=== PATIENT | male | born 1995 | race Caucasian/White ===

== ENCOUNTER 2023-03-01 10:36 | Inpatient (IN) ==
--- NOTE | 2023-03-01 10:54 | Emergency Department Note ---
Impression & Plan Depression with suicidal ideation ED Provider Note NAME: CARMELO MCELROY AGE: 27 SEX: M : 1995 ARRIVES VIA: Walk-In INFORMANT: Patient, ED PROVIDER(S): Anjel Driscoll MD CHIEF COMPLAINT: Suicidal ideation with plan MEDICAL DECISION MAKING: Patient presents with SI with plan. Blood work was obtained along with urinaly sis urine drug screen as well as salicylate Tylenol alcohol levels. Patient was deemed medically cleared seen and evaluated by psych porter sample case referrals were made and the patient was admitted to 3 S. Discussion w/ other healthcare providers: None Prior /Outside records reviewed: None Differential diagnosis: Mood disorder, infection, hypoglycemia, electrolyte abnormalities, dehydration, medication side effect among others were considered. Diagnostics, as interpreted by me: ECG: None Medical decision rules: Suicide risk severity score Imaging studies: None HPI: Patient presents due to concern for suicidal ideation and plan. The patient has struggled with this chronically and did have a recent inpatient stay at the [facility] but did not want to continue treatment as there was concern that all he was being offered was medication which she did not want to do and wanted to speak with somebody at that time. The patient did have a stay from Monday to Monday. Patient states that he is in the [employer] currently working and in school. States that given his worsening suicidal ideation depression the patient does not been doing as well in school and is planning to take a medical leave of absence. Patient has had plan to either overdose on meds, cut himself or jump off of a high building. Patient denies any HI or AVH. Patient states his sleep has been lacking and the patient's appetite has been "nonexistent." Patient does feel safe at home. PAST MEDICAL HISTORY: Depression PAST SURGICAL HISTORY: No pertinent past surgical history SOCIAL HISTORY: Occasionally uses alcohol uses nicotine gum. Denies drug use. Currently in the [employer] and in school. HOME MEDICATIONS: See Below ALLERGIES: See Below VITALS: See Below PHYSICAL EXAMINATION: GENERAL: NAD, non-toxic. EYE EXAM: Normal conjunctiva. PERRL, no anisocoria and EOM's grossly intact w/o pain. OROPHARYNX: Moist mucus membranes, grossly normal dentition. NECK: Supple, no nuchal rigidity, no adenopathy, non-tender. No signs of meningismus. FROM of the neck with good chin to chest and neck extension. No stridor. LUNGS: Clear to auscultation. Normal chest wall mechanics. HEART: NSR, no MRG. ABDOMEN: Abdomen soft, non-tender, no masses, no rebound or guarding. BACK: No CVA TTP. SKIN: No rashes and no bruising. UPPER EXTREMITIES: Upper extremities are grossly normal. LOWER EXTREMITIES: Grossly normal, no edema. NEURO EXAM: A&O x3, cranial nerves II-XII grossly intact, normal speech, moves all 4 extremities. Psych: Positive SI with plan, negative HI or AVH. Past Med/Surg History Social History Smoking Status: Never smoker Feels Safe at Home: Yes Gender Identity: Male Allergies Allergies Allergy/AdvReac Type Severity Reaction Status Date / Time No Known Allergies Allergy Unverified 03/01/23 10:50 Home Meds Home Medications Medication Instructions Recorded Confirmed No Known Home Medications 03/01/23 03/01/23 Results & Data (ED) Vital Signs Vital Signs - 24 hr 03/01/23 10:38 03/01/23 12:49 Temperature 36.8 C Temperature Source Temporal Artery Scan Pulse Rate 68 Pulse Rate [Left Finger] 65 Respiratory Rate 20 20 Respiratory Effort / Characteristics Non-Labored Spontaneous Respiratory Depth Normal Respiratory Pattern Regular Blood Pressure 146/98 H Blood Pressure [Left Arm] 121/74 Blood Pressure Mean 114 Blood Pressure Mean [Left Arm] 89 Pulse Oximetry 100 100 Oxygen Delivery Method Room Air Room Air Sepsis Recent Fever Within 48 Hours No Sepsis New/Unexplained Change in Mental Status No Sepsis Action Taken by Nursing No Action Required Home Medications Current Medication List: was personally reviewed by me Laboratory Data Attestation: I reviewed the patient's lab results. 03/01/23 11:12 03/01/23 11:12 Lab Results 03/01/23 03/01/23 03/01/23 Range/Units 11:12 11:12 11:12 WBC 3.16 L (4.8-10.8) K/ul RBC 4.96 (4.70-6.10) M/uL Hgb 15.2 (14.0-18.0) g/dl Hct 44.8 (42.0-52.0) % MCV 90.3 (80.0-100.0) fL MCH 30.6 (25.0-34.0) pg MCHC 33.9 (32.0-36.0) g/dL RDW Std Deviation 39.1 (36.4-46.3) fL RDW Coeff of Nati 11.8 (11.5-14.5) % Plt Count 252 (130-400) K/uL MPV 10.9 (9.4-12.4) fL Immature Gran % (Auto) 0.3 % Neut % (Auto) 35.2 % Lymph % (Auto) 52.2 % Luna % (Auto) 10.1 % Eos % (Auto) 1.3 % Baso % (Auto) 0.9 % Neut # (Auto) 1.11 L (1.40-6.50) K/uL Lymph # (Auto) 1.65 (1.20-3.40) K/uL Luna # (Auto) 0.32 (0.11-0.59) K/uL Eos # (Auto) 0.04 (0.00-0.50) K/uL Baso # (Auto) 0.03 (0.00-0.20) K/uL Immature Gran # (Auto) 0.01 (0.01-0.20) K/uL Sodium 138 (136-145) mmol/L Potassium 4.1 (3.5-5.1) mmol/L Chloride 107 (98-107) mmol/L Carbon Dioxide 25 (21-32) mmol/L Anion Gap 6 (3-11) BUN 16 (6-23) mg/dl Creatinine 1.08 (0.6-1.4) mg/dl Est Cr Clr Drug Dosing 103.6 ml/min Est GFR ( Amer) 109.2 ml/min Est GFR (Non-Af Amer) 94.2 ml/min BUN/Creatinine Ratio 14.8 (10-20) Glucose 93 (70-99(Fasting)) mg/dl Calcium 9.7 (8.6-10.3) mg/dl Total Bilirubin 0.5 (0.2-1.0) mg/dl AST 16 (13-39) U/L ALT 17 (7-52) U/L Alkaline Phosphatase 53 (34-104) U/L Total Protein 7.7 (6.0-8.3) gm/dl Albumin 4.8 (3.4-5.0) gm/dl Globulin 2.9 (2.5-4.0) gm/dl Albumin/Globulin Ratio 1.7 (0.9-2) TSH 2.874 (0.300-4.500) uIu/ml Urine Color Urine Appearance (Clear) Urine pH (4.5-7.5) Ur Specific [place] (1.000-1.030) Urine Protein (Negative) Urine Glucose (UA) (Negative) Urine Ketones (Negative) Urine Blood (Negative) Urine Nitrite (Negative) Urine Bilirubin (Negative) Urine Urobilinogen (Negative) Ur Leukocyte Esterase (Negative) Urine WBC (Auto) (0-5) /hpf Urine RBC (Auto) (0-4) /hpf U Hyaline Cast (Auto) (0-5) /lpf U Epithel Cells (Auto) (0-5) /lpf Urine Bacteria (Auto) (Negative) Salicylates < 3.0 L (3.0-30) mg/dl Urine Opiates Screen (Neg) Ur Methadone, Qual (Neg) Acetaminophen < 3 L (10-30) ug/ml Urine Barbiturates (Neg) Ur Phencyclidine (PCP) (Neg) U Amphetamin/Meth Scrn (Neg) MDMA (Ecstasy) Screen (Neg) U Benzodiazepines Scrn (Neg) Ur Cocaine Metabolite (Neg) U Marijuana (THC) Screen (Neg) Ethyl Alcohol mg/dL (<10.0) mg/dl SARS-CoV-2, RNA, NAAT (NEGATIVE) 03/01/23 03/01/23 03/01/23 Range/Units 11:12 11:57 11:57 WBC (4.8-10.8) K/ul RBC (4.70-6.10) M/uL Hgb (14.0-18.0) g/dl Hct (42.0-52.0) % MCV (80.0-100.0) fL MCH (25.0-34.0) pg MCHC (32.0-36.0) g/dL RDW Std Deviation (36.4-46.3) fL RDW Coeff of Nati (11.5-14.5) % Plt Count (130-400) K/uL MPV (9.4-12.4) fL Immature Gran % (Auto) % Neut % (Auto) % Lymph % (Auto) % Luna % (Auto) % Eos % (Auto) % Baso % (Auto) % Neut # (Auto) (1.40-6.50) K/uL Lymph # (Auto) (1.20-3.40) K/uL Luna # (Auto) (0.11-0.59) K/uL Eos # (Auto) (0.00-0.50) K/uL Baso # (Auto) (0.00-0.20) K/uL Immature Gran # (Auto) (0.01-0.20) K/uL Sodium (136-145) mmol/L Potassium (3.5-5.1) mmol/L Chloride (98-107) mmol/L Carbon Dioxide (21-32) mmol/L Anion Gap (3-11) BUN (6-23) mg/dl Creatinine (0.6-1.4) mg/dl Est Cr Clr Drug Dosing ml/min Est GFR ( Amer) ml/min Est GFR (Non-Af Amer) ml/min BUN/Creatinine Ratio (10-20) Glucose (70-99(Fasting)) mg/dl Calcium (8.6-10.3) mg/dl Total Bilirubin (0.2-1.0) mg/dl AST (13-39) U/L ALT (7-52) U/L Alkaline Phosphatase (34-104) U/L Total Protein (6.0-8.3) gm/dl Albumin (3.4-5.0) gm/dl Globulin (2.5-4.0) gm/dl Albumin/Globulin Ratio (0.9-2) TSH (0.300-4.500) uIu/ml Urine Color Yellow Urine Appearance Turbid A (Clear) Urine pH 8.0 H (4.5-7.5) Ur Specific [place] 1.020 (1.000-1.030) Urine Protein Negative (Negative) Urine Glucose (UA) Negative (Negative) Urine Ketones Negative (Negative) Urine Blood Negative (Negative) Urine Nitrite Negative (Negative) Urine Bilirubin Negative (Negative) Urine Urobilinogen Negative (Negative) Ur Leukocyte Esterase Negative (Negative) Urine WBC (Auto) 0 (0-5) /hpf Urine RBC (Auto) 0-4 (0-4) /hpf U Hyaline Cast (Auto) 0 (0-5) /lpf U Epithel Cells (Auto) 0-5 (0-5) /lpf Urine Bacteria (Auto) Negative (Negative) Salicylates (3.0-30) mg/dl Urine Opiates Screen Neg (Neg) Ur Methadone, Qual Neg (Neg) Acetaminophen (10-30) ug/ml Urine Barbiturates Neg (Neg) Ur Phencyclidine (PCP) Neg (Neg) U Amphetamin/Meth Scrn Neg (Neg) MDMA (Ecstasy) Screen Neg (Neg) U Benzodiazepines Scrn Neg (Neg) Ur Cocaine Metabolite Neg (Neg) U Marijuana (THC) Screen Neg (Neg) Ethyl Alcohol mg/dL < 10.0 (<10.0) mg/dl SARS-CoV-2, RNA, NAAT (NEGATIVE) 03/01/23 Range/Units 12:40 WBC (4.8-10.8) K/ul RBC (4.70-6.10) M/uL Hgb (14.0-18.0) g/dl Hct (42.0-52.0) % MCV (80.0-100.0) fL MCH (25.0-34.0) pg MCHC (32.0-36.0) g/dL RDW Std Deviation (36.4-46.3) fL RDW Coeff of Nati (11.5-14.5) % Plt Count (130-400) K/uL MPV (9.4-12.4) fL Immature Gran % (Auto) % Neut % (Auto) % Lymph % (Auto) % Luna % (Auto) % Eos % (Auto) % Baso % (Auto) % Neut # (Auto) (1.40-6.50) K/uL Lymph # (Auto) (1.20-3.40) K/uL Luna # (Auto) (0.11-0.59) K/uL Eos # (Auto) (0.00-0.50) K/uL Baso # (Auto) (0.00-0.20) K/uL Immature Gran # (Auto) (0.01-0.20) K/uL Sodium (136-145) mmol/L Potassium (3.5-5.1) mmol/L Chloride (98-107) mmol/L Carbon Dioxide (21-32) mmol/L Anion Gap (3-11) BUN (6-23) mg/dl Creatinine (0.6-1.4) mg/dl Est Cr Clr Drug Dosing ml/min Est GFR ( Amer) ml/min Est GFR (Non-Af Amer) ml/min BUN/Creatinine Ratio (10-20) Glucose (70-99(Fasting)) mg/dl Calcium (8.6-10.3) mg/dl Total Bilirubin (0.2-1.0) mg/dl AST (13-39) U/L ALT (7-52) U/L Alkaline Phosphatase (34-104) U/L Total Protein (6.0-8.3) gm/dl Albumin (3.4-5.0) gm/dl Globulin (2.5-4.0) gm/dl Albumin/Globulin Ratio (0.9-2) TSH (0.300-4.500) uIu/ml Urine Color Urine Appearance (Clear) Urine pH (4.5-7.5) Ur Specific [place] (1.000-1.030) Urine Protein (Negative) Urine Glucose (UA) (Negative) Urine Ketones (Negative) Urine Blood (Negative) Urine Nitrite (Negative) Urine Bilirubin (Negative) Urine Urobilinogen (Negative) Ur Leukocyte Esterase (Negative) Urine WBC (Auto) (0-5) /hpf Urine RBC (Auto) (0-4) /hpf U Hyaline Cast (Auto) (0-5) /lpf U Epithel Cells (Auto) (0-5) /lpf Urine Bacteria (Auto) (Negative) Salicylates (3.0-30) mg/dl Urine Opiates Screen (Neg) Ur Methadone, Qual (Neg) Acetaminophen (10-30) ug/ml Urine Barbiturates (Neg) Ur Phencyclidine (PCP) (Neg) U Amphetamin/Meth Scrn (Neg) MDMA (Ecstasy) Screen (Neg) U Benzodiazepines Scrn (Neg) Ur Cocaine Metabolite (Neg) U Marijuana (THC) Screen (Neg) Ethyl Alcohol mg/dL (<10.0) mg/dl SARS-CoV-2, RNA, NAAT NEGATIVE (NEGATIVE) Discharge Plan Visit Data Chief Complaint: Mental Health Evaluation Stated Complaint: SUICIDAL THOUGHTS ED Provider: Anjel Driscoll Discharge Problem: Depression with suicidal ideation Patient Disposition: Admitted As Inpatient Forms Stand Alone Forms: [facility], Suicide Prevention Resources Prescriptions Prescriptions: No Action No Known Home Medications Referrals Referrals: PCP,NO [Physician] -
[2023-03-01 11:42] LABS: Hematocrit (blood only) 44.8 % (42.0-52.0); Hemoglobin 15.2 g/dl (14.0-18.0); Mean Corpuscular Hemoglobin 30.6 pg (25.0-34.0); Mean Corpuscular Hgb Conc 33.9 g/dL (32.0-36.0); Mean Corpuscular Volume 90.3 fL (80.0-100.0); Mean Platelet Volume 10.9 fL (9.4-12.4); Platelet Count 252 K/uL (130-400); RDW Coefficient of Variation 11.8 % (11.5-14.5); RDW Standard Deviation 39.1 fL (36.4-46.3); Red Blood Count 4.96 M/uL (4.70-6.10); White Blood Count 3.16 K/ul (4.8-10.8)
[2023-03-01 11:58] LABS: Albumin Level 4.8 gm/dl (3.4-5.0); Bilirubin,Total 0.5 mg/dl (0.2-1.0); Calcium 9.7 mg/dl (8.6-10.3); Potassium 4.1 mmol/L (3.5-5.1)
[2023-03-01 12:04] LABS: Albumin Globulin Ratio 1.7 (0.9-2); BUN Creatinine Ratio 14.8 (10-20); Creatinine Clr Calc Pharmacy 103.6 ml/min; Est GFR (African American) 109.2 ml/min; Est GFR (Non-African American) 94.2 ml/min; Globulin 2.9 gm/dl (2.5-4.0); Total Protein 7.7 gm/dl (6.0-8.3)
[2023-03-01 12:05] LABS: Acetaminophen < 3 ug/ml (10-30); Salicylate < 3.0 mg/dl (3.0-30)
[2023-03-01 12:07] LABS: Basophils # (auto) 0.03 K/uL (0.00-0.20); Basophils % (auto) 0.9 %; Eosinophils # (auto) 0.04 K/uL (0.00-0.50); Eosinophils % (auto) 1.3 %; Immature Granulocytes # (auto) 0.01 K/uL (0.01-0.20); Immature Granulocytes % (auto) 0.3 %; Lymphocytes # (auto) 1.65 K/uL (1.20-3.40); Lymphocytes % (auto) 52.2 %; Monocytes # (auto) 0.32 K/uL (0.11-0.59); Monocytes % (auto) 10.1 %; Neutrophils # (auto) 1.11 K/uL (1.40-6.50); Neutrophils % (auto) 35.2 %
[2023-03-01 12:17] LABS: Thyroid Stimulating Hormone 2.874 uIu/ml (0.300-4.500)
[2023-03-01 12:17] LABS: Appearance Urine Turbid (Clear); Bacteria Urine Automated Negative (Negative); Bilirubin Urine Negative (Negative); Blood Urine Negative (Negative); Cast Urine Automated 0 /lpf (0-5); Color Urine Yellow; Epithelial Cell Urine Auto 0-5 /lpf (0-5); Glucose Urine UA Negative (Negative); Ketones Urine Negative (Negative); Leukocyte Esterase Urine Negative (Negative); Nitrite Urine Negative (Negative); Protein Urine Negative (Negative); RBC Urine Automated 0-4 /hpf (0-4); Urobilinogen Urine Negative (Negative); WBC Urine Automated 0 /hpf (0-5)
[2023-03-01 12:50] LABS: Amphetamines+Metham, Urine Neg (Neg); Barbiturates, Urine Neg (Neg); Benzodiazepine, Urine Neg (Neg); Cocaine, Urine Neg (Neg); MDMA (Ecstacy), Urine Neg (Neg); Methadone, Urine Neg (Neg); Opiate, Urine Neg (Neg); Phencyclidine, Urine Neg (Neg)
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
[2023-03-02] MEDS ORDERED: DICLOFENAC SOD 1% GEL 100 GM TUBE EXT SCH (11:45)
[2023-03-02] MEDS ORDERED: hydrOXYzine HCl 25 MG TAB PO PRN ×2 (13:10)
[2023-03-02] MEDS ORDERED: ALUMINUM/MAGNESIUM SUSP 30 ML UDC PO PRN (13:10)
[2023-03-02] MEDS ORDERED: MAGNESIUM HYDROXIDE SUSP 30 ML UDC PO PRN (13:10)
[2023-03-02] MEDS ORDERED: ACETAMINOPHEN 325 MG TAB PO PRN (13:10)
[2023-03-02] MEDS ORDERED: SODIUM CHLORIDE 0.65% NA SOLN 45 ML (OCEAN) PRN (13:10)
[2023-03-02] MEDS ORDERED: BISMUTH SUBSALICYLATE LIQD 236 ML PO PRN (13:10)
[2023-03-02] MEDS ORDERED: DICLOFENAC SOD 1% GEL 100 GM TUBE EXT PRN (13:11)
[2023-03-02] MEDS: NICOTINE POLACRILEX 2 MG GUM MT PRN ×2 (13:18→21:27)
[2023-03-02] MEDS: buPROPion XL 150 MG TABCR PO SCH (13:18)
[2023-03-03] MEDS: NICOTINE POLACRILEX 2 MG GUM MT PRN ×3 (09:26→19:08)
[2023-03-03] MEDS: buPROPion XL 150 MG TABCR PO SCH (09:28)
--- NOTE | 2023-03-03 09:38 | Psychiatric Progress Note ---
Date of Service March 03, 2023 Impression / Recommendations Impression Rehan is a 27 yo with a history of chronic SI, service who was admitted for worsened depression with SI with multiple plans. Diagnostically seems most consistent with major depressive disorder and possible PTSD component. He is deemed in need of psychiatric hospitalization for diagnostic clarification, safety and stabilization, medication management and development of further coping skills. 03/03/2023: Ongoing depression with SI. Did not tolerate Wellbutrin, had paraxodical reaction so this was discontinued. Discussed medication treatment options and he would like to start sertraline and consented to this. Reviewed side effects including but not limited to: GI, RENAE, vivid dreams, sexual side effects. Overall, I spent a total of 25 minutes with this case including review of chart records, direct evaluation of the patient at bedside, counseling the patient, discussion during interdisciplinary treatment rounds, risk assessment, and documentation in the electronic health record. (1) Depression with suicidal ideation: (2) MDD (major depressive disorder), recurrent episode, severe: (3) Trauma and stressor-related disorder: Plan 03/03/2023: * Discontinue Wellbutrin * Start sertraline 25mg daily 03/02/2023: The patient was admitted to the [facility] ([facility] inpatient mental health unit) on q15 min checks (behavioral with suicide precautions) for safety. The patient will participate in group, recreational, and milieu therapies and will be offered additional individual and family sessions as clinically appropriate. -CAMS assessment -possible trial of prazosin 1mg HS tonight for night terrors -Consider SSRI vs Wellbutrin trial, he is going to discuss past medication trials his mom and siblings have benefited from Inventory Assets Strengths: supportive relationships, willing to get treatment Needs: safety and stabilization, medication adjustment, additional coping skills, increased outpatient services Suicide Risk Level Suicide Risk Level: High-Moderate (q15 min suicide checks) (severe depression with SI with plan prior to admission, ongoing depression with SI but feels safe in the hospital, able to safety contract and agrees to let nursing/staff know should they develop plan, intent or feel unable to remain safe. 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 Chief Complaint "Yeah I definitely felt weird after the Wellbutrin yesterday". Review of Systems Sleep Information Total Hours of Sleep: 7 Meal Information Percent Meal Consumed - Breakfast: 100 Percent Meal Consumed - Lunch: 100 Percent Meal Consumed - Dinner: 100 Subjective Subjective Patient was seen & assessed and interval progress reviewed with treatment team nursing and social work. Experienced brain fog/numbness after initial dose of Wellbutrin as well as a headache, fatigue and increased appetite. Given paradoxical reaction morning dose was discontinued. Reviewed other options and he consented to sertraline trial which his mother previously responded well to. Still having SI but finding groups and unit support helpful. Physical Exam Psychiatric Orientation: alert and oriented x 3 Apperance: appropriately dressed and appropriately groomed Eye Contact: good eye contact Motor Behavior: no abnormal motor movements Speech: normal rate/rhythm/volume of speech Affect: + mood not congruent with affect (smiles ) Mood: + depressed mood and + anxious mood Thought Process: goal directed thought process Thought Content: reality based without delusions Suicidal Thoughts: denies suicidal intent; + reports suicidal thoughts and + reports suicidal plan (none for here, multiple for outside the hospital) Homicidal Thoughts: denies homicidal thoughts Hallucinations: no auditory hallucinations and no visual hallucinations Cognition: recent memory grossly intact, remote memory grossly intact, attention grossly intact and language grossly intact Estimated Intelligence: consistent with education level Insight: + limited insight Judgment: + fair judgement Vital Signs (Past 24 Hours) Last Vital Signs Temp 36.2 C L 03/03/23 06:00 Pulse 71 03/03/23 06:00 Resp 16 03/03/23 06:00 BP 113/68 03/03/23 06:43 Pulse Ox 99 03/03/23 06:00 O2 Del Method Room Air 03/03/23 06:00 Results & Data ([facility]) Current Inpatient Medications Current Inpatient Medications: Current Inpatient Medications Acetaminophen (Acetaminophen 325 Mg Tab) 650 mg PO Q4H PRN PRN Reason: Headache or Minor Fever Stop: 04/01/23 13:09 Al Hydrox/Mg Hydrox/Simethicone (Aluminum/Magnesium Susp 30 Ml Udc) 30 ml PO Q4H PRN PRN Reason: GI Upset Stop: 04/01/23 13:09 Bismuth Subsalicylate (Bismuth Subsalicylate Liqd 236 Ml) 15 ml PO PRN PRN PRN Reason: Loose Stool Stop: 04/01/23 13:09 Bupropion HCl (Bupropion Xl 150 Mg Tabcr) 150 mg PO QAM GAGE Stop: 04/01/23 13:14 Last Admin: 03/03/23 09:28 Dose: Not Given Diclofenac Sodium (Diclofenac Sod 1% Gel 100 Gm Tube) 2 gm EXT BID PRN; Protocol PRN Reason: Pain Stop: 04/01/23 11:44 Hydroxyzine HCl (Hydroxyzine Hcl 25 Mg Tab) 50 mg PO HSZ PRN PRN Reason: Insomnia Stop: 04/01/23 13:09 Hydroxyzine HCl (Hydroxyzine Hcl 25 Mg Tab) 25 mg PO Q4H PRN PRN Reason: Anxiety Stop: 04/01/23 13:09 Magnesium Hydroxide (Magnesium Hydroxide Susp 30 Ml Udc) 30 ml PO DAILY PRN PRN Reason: Constipation Stop: 04/01/23 13:09 Nicotine Polacrilex (Nicotine Polacrilex 2 Mg Gum) 1 piece MT PRN PRN PRN Reason: nicotine cravings Stop: 04/01/23 11:35 Last Admin: 03/03/23 09:26 Dose: 1 piece Sodium Chloride (Sodium Chloride 0.65% Na Soln 45 Ml (Rock)) 1 - 2 sprays NA PRN PRN PRN Reason: Nasal Dryness/Congestion Stop: 04/01/23 13:09 Post Discharge Appointments Primary Care Physician Name Of Family Doctor/PCP: Carole Carmen (2) MDD (major depressive disorder), recurrent episode, severe Psychotic features: without psychotic features Qualified Code(s): F33.2 - Major depressive disorder, recurrent severe without psychotic features
[2023-03-03] MEDS: SERTRALINE HCL 50 MG TABLET PO SCH (15:31)
[2023-03-04] MEDS: SERTRALINE HCL 50 MG TABLET PO SCH (08:58)
[2023-03-04] MEDS: NICOTINE POLACRILEX 2 MG GUM MT PRN ×3 (09:57→20:34)
--- NOTE | 2023-03-04 12:41 | Psychiatric Progress Note ---
Date of Service March 04, 2023 Impression / Recommendations Impression Rehan is a 27 yo with a history of chronic SI, service who was admitted for worsened depression with SI with multiple plans. Diagnostically seems most consistent with major depressive disorder and possible PTSD component. He is deemed in need of psychiatric hospitalization for diagnostic clarification, safety and stabilization, medication management and development of further coping skills. 03/04/2023: Ongoing depression with SI. Tolerating Zoloft Overall, I spent a total of 35 minutes with this case including review of chart records, direct evaluation of the patient at bedside, counseling the patient, discussion with nursing, and documentation in the electronic health record. (1) Depression with suicidal ideation: (2) MDD (major depressive disorder), recurrent episode, severe: (3) Trauma and stressor-related disorder: Plan 03/04/2023: continue Zoloft trial. 03/03/2023: * Discontinue Wellbutrin * Start sertraline 25mg daily 03/02/2023: The patient [facility] on q15 min checks (behavioral with suicide precautions) for safety. The patient will participate in group, recreational, and milieu therapies and will be offered additional individual and family sessions as clinically appropriate. -CAMS assessment -possible trial of prazosin 1mg HS tonight for night terrors -Consider SSRI vs Wellbutrin trial, he is going to discuss past medication trials his mom and siblings have benefited from Inventory Assets Strengths: supportive relationships, willing to get treatment Needs: safety and stabilization, medication adjustment, additional coping skills, increased outpatient services Suicide Risk Level Suicide Risk Level: High-Moderate (q15 min suicide checks) Risk Factors Assessment Male: Yes : Yes Do You Have Access To A Gun?: Yes (his mom may have a gun) Health Problems: Yes (joint pain) Mental Health Diagnoses: Yes Substance Use Disorders: No Previous Attempt: No Family History of Suicide: Yes Previous Psychiatric Hospitalization: Yes Protective Factors Assessment Responsible for Young Children: Yes (baby due in next month) Employed: Yes ([employer]) Stable Relationships: Yes Supportive Family: Yes Interval History Identifying Information REHAN MCELROY is a 27-year-old man, 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 Chief Complaint "I still have those thoughts" referring to suicidal ideation Review of Systems Sleep Information Total Hours of Sleep: 6 Meal Information Percent Meal Consumed - Breakfast: 100 Percent Meal Consumed - Lunch: 100 Percent Meal Consumed - Dinner: 90 Subjective Subjective Patient was seen & assessed and interval progress reviewed with nursing. Patient reports tolerating Zoloft doses so far without paradoxical sedation or GI side effects. He feels SI is less frequent but ongoing. Cooperative with unit routines and benefiting from group. Reports restless sleep with long hx of nightmares or terrors, clear "not service related". Declines standing Vistaril. Physical Exam Psychiatric Orientation: alert and oriented x 3 Apperance: appropriately dressed and appropriately groomed Eye Contact: good eye contact Motor Behavior: no abnormal motor movements Speech: normal rate/rhythm/volume of speech Affect: + depressed affect; + mood not congruent with affect (smiles ) Mood: + depressed mood Thought Process: goal directed thought process Thought Content: reality based without delusions Suicidal Thoughts: denies suicidal intent; + reports suicidal thoughts and + reports suicidal plan (none for here, multiple for outside the hospital) Homicidal Thoughts: denies homicidal thoughts Hallucinations: no auditory hallucinations and no visual hallucinations Cognition: recent memory grossly intact, remote memory grossly intact, attention grossly intact and language grossly intact Estimated Intelligence: consistent with education level Insight: + limited insight Vital Signs (Past 24 Hours) Last Vital Signs Temp 36.9 C 03/04/23 06:45 Pulse 61 03/04/23 06:46 Resp 16 03/04/23 06:45 BP 101/63 03/04/23 06:46 Pulse Ox 99 03/03/23 06:00 O2 Del Method Room Air 03/03/23 06:00 Results & Data ([facility]) Current Inpatient Medications Current Inpatient Medications: Current Inpatient Medications Acetaminophen (Acetaminophen 325 Mg Tab) 650 mg PO Q4H PRN PRN Reason: Headache or Minor Fever Stop: 04/01/23 13:09 Last Admin: 03/03/23 20:19 Dose: 650 mg Al Hydrox/Mg Hydrox/Simethicone (Aluminum/Magnesium Susp 30 Ml Udc) 30 ml PO Q4H PRN PRN Reason: GI Upset Stop: 04/01/23 13:09 Bismuth Subsalicylate (Bismuth Subsalicylate Liqd 236 Ml) 15 ml PO PRN PRN PRN Reason: Loose Stool Stop: 04/01/23 13:09 Diclofenac Sodium (Diclofenac Sod 1% Gel 100 Gm Tube) 2 gm EXT BID PRN; Protocol PRN Reason: Pain Stop: 04/01/23 11:44 Last Admin: 03/03/23 20:22 Dose: 2 gm Hydroxyzine HCl (Hydroxyzine Hcl 25 Mg Tab) 50 mg PO HSZ PRN PRN Reason: Insomnia Stop: 04/01/23 13:09 Hydroxyzine HCl (Hydroxyzine Hcl 25 Mg Tab) 25 mg PO Q4H PRN PRN Reason: Anxiety Stop: 04/01/23 13:09 Magnesium Hydroxide (Magnesium Hydroxide Susp 30 Ml Udc) 30 ml PO DAILY PRN PRN Reason: Constipation Stop: 04/01/23 13:09 Nicotine Polacrilex (Nicotine Polacrilex 2 Mg Gum) 1 piece MT PRN PRN PRN Reason: nicotine cravings Stop: 04/01/23 11:35 Last Admin: 03/04/23 09:57 Dose: 1 piece Sertraline HCl (Sertraline Hcl 50 Mg Tablet) 25 mg PO QAM GAGE Stop: 04/02/23 14:59 Last Admin: 03/04/23 08:58 Dose: 25 mg Sodium Chloride (Sodium Chloride 0.65% Na Soln 45 Ml ([place])) 1 - 2 sprays NA PRN PRN PRN Reason: Nasal Dryness/Congestion Stop: 04/01/23 13:09 Post Discharge Appointments Primary Care Physician Name Of Family Doctor/PCP: Carole Carmen (2) MDD (major depressive disorder), recurrent episode, severe Psychotic features: without psychotic features Qualified Code(s): F33.2 - Major depressive disorder, recurrent severe without psychotic features
[2023-03-05] MEDS: SERTRALINE HCL 50 MG TABLET PO SCH (09:12)
[2023-03-05] MEDS: NICOTINE POLACRILEX 2 MG GUM MT PRN ×4 (09:12→21:23)
--- NOTE | 2023-03-05 13:45 | Psychiatric Progress Note ---
Date of Service March 05, 2023 Impression / Recommendations Impression Carmelo is a 27 yo with a history of chronic SI, service who was admitted for worsened depression with SI with multiple plans. Diagnostically seems most consistent with major depressive disorder and possible PTSD component. He is deemed in need of psychiatric hospitalization for diagnostic clarification, safety and stabilization, medication management and development of further coping skills. 03/05/2023: Ongoing sleep issues and intermittent SI, no plan or intent on unit Overall, I spent a total of 36 minutes with this case including review of chart records, direct evaluation of the patient at bedside, counseling the patient, discussion with nursing, and documentation in the electronic health record. (1) Depression with suicidal ideation: (2) MDD (major depressive disorder), recurrent episode, severe: (3) Trauma and stressor-related disorder: Plan 03/05/2023: titrate Zoloft 50 mg daily, hs Vistaril 50 mg standing. 03/04/2023: continue Zoloft trial. 03/03/2023: * Discontinue Wellbutrin * Start sertraline 25mg daily 03/02/2023: The patient was admitted to the [facility] ([facility] mental health unit) on q15 min checks (behavioral with suicide precautions) for safety. The patient will participate in group, recreational, and milieu therapies and will be offered additional individual and family sessions as clinically appropri ate. -CAMS assessment -possible trial of prazosin 1mg HS tonight for night terrors -Consider SSRI vs Wellbutrin trial, he is going to discuss past medication trials his mom and siblings have benefited from Inventory Assets Strengths: supportive relationships, willing to get treatment Needs: safety and stabilization, medication adjustment, additional coping skills, increased outpatient services Suicide Risk Level Suicide Risk Level: High-Moderate (q15 min suicide checks) Risk Factors Assessment Male: Yes : Yes Do You Have Access To A Gun?: Yes (his mom may have a gun) Health Problems: Yes (joint pain) Mental Health Diagnoses: Yes Substance Use Disorders: No Previous Attempt: No Family History of Suicide: Yes Previous Psychiatric Hospitalization: Yes Protective Factors Assessment Responsible for Young Children: Yes (baby due in next month) Employed: Yes ([employer]) Stable Relationships: Yes Supportive Family: Yes Interval History Identifying Information CARMELO MCELROY is a 27-year-old man, 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 Chief Complaint "I'm glad my found me." Review of Systems Sleep Information Total Hours of Sleep: 6.5 Meal Information Percent Meal Consumed - Breakfast: 100 Percent Meal Consumed - Lunch: 75 Percent Meal Consumed - Dinner: 100 Subjective Subjective Patient was seen & assessed and interval progress reviewed with nursing. jama with family interactions during visiting but otherwise rated his mood as only a 4 and exhausted. He did accept 25 mg Vistaril last hs with minimal benefit. He denies side effects to Zoloft. Discussed stressors and life transitions as becoming a father, need for treatment may impact his future with the [employer], etc. Physical Exam Psychiatric Orientation: alert and oriented x 3 Apperance: appropriately dressed and appropriately groomed Eye Contact: good eye contact Motor Behavior: no abnormal motor movements Speech: normal rate/rhythm/volume of speech Affect: + anxious affect Mood: + depressed mood Thought Process: goal directed thought process Thought Content: reality based without delusions Suicidal Thoughts: denies suicidal intent; + reports suicidal thoughts and + reports suicidal plan (none for here, multiple for outside the hospital) Homicidal Thoughts: denies homicidal thoughts Hallucinations: no auditory hallucinations and no visual hallucinations Cognition: recent memory grossly intact, remote memory grossly intact, attention grossly intact and language grossly intact Estimated Intelligence: consistent with education level Vital Signs (Past 24 Hours) Last Vital Signs Temp 36.8 C 03/05/23 06:41 Pulse 65 03/05/23 06:42 Resp 16 03/05/23 06:41 BP 108/70 03/05/23 06:42 Pulse Ox 99 03/03/23 06:00 O2 Del Method Room Air 03/03/23 06:00 Results & Data ([facility]) Current Inpatient Medications Current Inpatient Medications: Current Inpatient Medications Acetaminophen (Acetaminophen 325 Mg Tab) 650 mg PO Q4H PRN PRN Reason: Headache or Minor Fever Stop: 04/01/23 13:09 Last Admin: 03/03/23 20:19 Dose: 650 mg Al Hydrox/Mg Hydrox/Simethicone (Aluminum/Magnesium Susp 30 Ml Udc) 30 ml PO Q4H PRN PRN Reason: GI Upset Stop: 04/01/23 13:09 Bismuth Subsalicylate (Bismuth Subsalicylate Liqd 236 Ml) 15 ml PO PRN PRN PRN Reason: Loose Stool Stop: 04/01/23 13:09 Diclofenac Sodium (Diclofenac Sod 1% Gel 100 Gm Tube) 2 gm EXT BID PRN; Protocol PRN Reason: Pain Stop: 04/01/23 11:44 Last Admin: 03/03/23 20:22 Dose: 2 gm Hydroxyzine HCl (Hydroxyzine Hcl 25 Mg Tab) 50 mg PO HSZ PRN PRN Reason: Insomnia Stop: 04/01/23 13:09 Hydroxyzine HCl (Hydroxyzine Hcl 25 Mg Tab) 25 mg PO Q4H PRN PRN Reason: Anxiety Stop: 04/01/23 13:09 Last Admin: 03/04/23 21:10 Dose: 25 mg Magnesium Hydroxide (Magnesium Hydroxide Susp 30 Ml Udc) 30 ml PO DAILY PRN PRN Reason: Constipation Stop: 04/01/23 13:09 Nicotine Polacrilex (Nicotine Polacrilex 2 Mg Gum) 1 piece MT PRN PRN PRN Reason: nicotine cravings Stop: 04/01/23 11:35 Last Admin: 03/05/23 13:20 Dose: 1 piece Sertraline HCl (Sertraline Hcl 50 Mg Tablet) 50 mg PO QAM GAGE Stop: 04/05/23 08:59 Sodium Chloride (Sodium Chloride 0.65% Na Soln 45 Ml ([place])) 1 - 2 sprays NA PRN PRN PRN Reason: Nasal Dryness/Congestion Stop: 04/01/23 13:09 Post Discharge Appointments Primary Care Physician Name Of Family Doctor/PCP: Carole Carmen (2) MDD (major depressive disorder), recurrent episode, severe Psychotic features: without psychotic features Qualified Code(s): F33.2 - Major depressive disorder, recurrent severe without psychotic features
[2023-03-05] MEDS ORDERED: hydrOXYzine HCl 25 MG TAB PO SCH (22:00)
[2023-03-06] MEDS: SERTRALINE HCL 50 MG TABLET PO SCH (08:56)
[2023-03-06] MEDS: NICOTINE POLACRILEX 2 MG GUM MT PRN ×4 (09:46→20:28)
--- NOTE | 2023-03-06 14:59 | Psychiatric Progress Note ---
Date of Service March 06, 2023 Impression / Recommendations Impression Rehan is a 27 yo with a history of chronic SI, service who was admitted for worsened depression with SI with multiple plans. Diagnostically seems most consistent with major depressive disorder and possible PTSD component. He is deemed in need of psychiatric hospitalization for diagnostic clarification, safety and stabilization, medication management and development of further coping skills. 03/06/2023: Ongoing sleep issues and intermittent SI, no plan or intent on unit Overall, I spent a total of 35 minutes with this case including review of chart records, direct evaluation of the patient at bedside, counseling the patient, discussion with treatment team, and documentation in the electronic health record. (1) Depression with suicidal ideation: (2) MDD (major depressive disorder), recurrent episode, severe: (3) Trauma and stressor-related disorder: Plan 03/06/2023: increase hs Vistaril to 100 mg hs to complete trial. family meeting. declines prazosin trial at this time. 03/05/2023: titrate Zoloft 50 mg daily, hs Vistaril 50 mg standing. 03/04/2023: continue Zoloft trial. 03/03/2023: * Discontinue Wellbutrin * Start sertraline 25mg daily 03/02/2023: The patient was admitted to the [facility] ([facility] mental health unit) on q15 min checks (behavioral with suicide precautions) for safety. The patient will participate in group, recreational, and milieu therapies and will be offered additional individual and family sessions as clinically appropriate. -CAMS assessment -possible trial of prazosin 1mg HS tonight for night terrors -Consider SSRI vs Wellbutrin trial, he is going to discuss past medication trials his mom and siblings have benefited from Inventory Assets Strengths: supportive relationships, willing to get treatment Needs: safety and stabilization, medication adjustment, additional coping skills, increased outpatient services Suicide Risk Level Suicide Risk Level: High-Moderate (q15 min suicide checks) Risk Factors Assessment Male: Yes : Yes Do You Have Access To A Gun?: Yes (his mom may have a gun) Health Problems: Yes (joint pain) Mental Health Diagnoses: Yes Substance Use Disorders: No Previous Attempt: No Family History of Suicide: Yes Previous Psychiatric Hospitalization: Yes Protective Factors Assessment Responsible for Young Children: Yes (baby due in next month) Employed: Yes ([employer]) Stable Relationships: Yes Supportive Family: Yes Interval History Identifying Information REHAN MCELROY is a 27-year-old man, 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 Chief Complaint plans to withdraw from classes Review of Systems Sleep Information Total Hours of Sleep: 6 Meal Information Percent Meal Consumed - Breakfast: 100 Percent Meal Consumed - Lunch: 100 Percent Meal Consumed - Dinner: 100 Subjective Subjective Patient was seen & assessed and interval progress reviewed with treatment team. Patient future focussed with regards to 's , advocating for her care, and his ability to return to work. working to set up family meeting. Intermittent SI yesterday. Does feel he slept somewhat better with Vistaril. Tolerating increase in Zoloft. Physical Exam Psychiatric Orientation: alert and oriented x 3 Apperance: appropriately dressed and appropriately groomed Eye Contact: good eye contact Motor Behavior: no abnormal motor movements Speech: normal rate/rhythm/volume of speech Affect: euthymic affect Mood: + depressed mood Thought Process: goal directed thought process Thought Content: reality based without delusions Suicidal Thoughts: denies suicidal intent; + reports suicidal thoughts (intermittment) Homicidal Thoughts: denies homicidal thoughts Hallucinations: no auditory hallucinations and no visual hallucinations Cognition: recent memory grossly intact, remote memory grossly intact, attention grossly intact and language grossly intact Estimated Intelligence: consistent with education level Insight: + limited insight Vital Signs (Past 24 Hours) Last Vital Signs Temp 36.9 C 03/06/23 06:46 Pulse 56 L 03/06/23 06:46 Resp 16 03/06/23 06:46 BP 103/66 03/06/23 06:46 Pulse Ox 99 03/03/23 06:00 O2 Del Method Room Air 03/03/23 06:00 Results & Data ([facility]) Current Inpatient Medications Current Inpatient Medications: Current Inpatient Medications Acetaminophen (Acetaminophen 325 Mg Tab) 650 mg PO Q4H PRN PRN Reason: Headache or Minor Fever Stop: 04/01/23 13:09 Last Admin: 03/03/23 20:19 Dose: 650 mg Al Hydrox/Mg Hydrox/Simethicone (Aluminum/Magnesium Susp 30 Ml Udc) 30 ml PO Q4H PRN PRN Reason: GI Upset Stop: 04/01/23 13:09 Bismuth Subsalicylate (Bismuth Subsalicylate Liqd 236 Ml) 15 ml PO PRN PRN PRN Reason: Loose Stool Stop: 04/01/23 13:09 Diclofenac Sodium (Diclofenac Sod 1% Gel 100 Gm Tube) 2 gm EXT BID PRN; Protocol PRN Reason: Pain Stop: 04/01/23 11:44 Last Admin: 03/03/23 20:22 Dose: 2 gm Hydroxyzine HCl (Hydroxyzine Hcl 25 Mg Tab) 50 mg PO HSZ PRN PRN Reason: Insomnia Stop: 04/01/23 13:09 Last Admin: 03/05/23 23:25 Dose: 50 mg Hydroxyzine HCl (Hydroxyzine Hcl 25 Mg Tab) 25 mg PO Q4H PRN PRN Reason: Anxiety Stop: 04/01/23 13:09 Last Admin: 03/04/23 21:10 Dose: 25 mg Hydroxyzine HCl (Hydroxyzine Hcl 25 Mg Tab) 50 mg PO HS GAGE Stop: 04/04/23 21:59 Last Admin: 03/05/23 21:22 Dose: 50 mg Magnesium Hydroxide (Magnesium Hydroxide Susp 30 Ml Udc) 30 ml PO DAILY PRN PRN Reason: Constipation Stop: 04/01/23 13:09 Nicotine Polacrilex (Nicotine Polacrilex 2 Mg Gum) 1 piece MT PRN PRN PRN Reason: nicotine cravings Stop: 04/01/23 11:35 Last Admin: 03/06/23 13:15 Dose: 1 piece Sertraline HCl (Sertraline Hcl 50 Mg Tablet) 50 mg PO QAM GAGE Stop: 04/05/23 08:59 Last Admin: 03/06/23 08:56 Dose: 50 mg Sodium Chloride (Sodium Chloride 0.65% Na Soln 45 Ml ([place])) 1 - 2 sprays NA PRN PRN PRN Reason: Nasal Dryness/Congestion Stop: 04/01/23 13:09 Post Discharge Appointments Primary Care Physician Name Of Family Doctor/PCP: Carole Carmen (2) MDD (major depressive disorder), recurrent episode, severe Psychotic features: without psychotic features Qualified Code(s): F33.2 - Major depressive disorder, recurrent severe without psychotic features
[2023-03-06] MEDS ORDERED: hydrOXYzine HCl 25 MG TAB PO SCH (22:00)
[2023-03-07] MEDS: SERTRALINE HCL 50 MG TABLET PO SCH (08:31)
[2023-03-07] MEDS: NICOTINE POLACRILEX 2 MG GUM MT PRN (09:52)
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
== END 2023-03-07 12:25 | disposition home or self-care (01) | DRG 885 ==
LOC: ED 10:36 → SUATTDRO 17:31 → 3S 17:31